=== PATIENT | female | born 1995 | race Caucasian/White ===

== ENCOUNTER 2019-04-18 15:24 | Emergency (ER) | payer OTHER ==
[~2019-04-18] VITALS: Ht 162.6 cm; Wt 63.5 kg
[2019-04-18 15:25] VITALS: BP_SYST 129
[2019-04-18] MEDS ORDERED: NACL 0.9% 1,000 ML IV ONE (15:45)
[2019-04-18 16:18] LABS: CALCIUM 9.1 mg/dL (8.4-11.0); CREATININE 0.84 mg/dL (0.55-1.30); POTASSIUM 3.4 mmol/L (3.5-5.1)
[2019-04-18 16:22] LABS: ALBUMIN 3.9 g/dL (3.4-4.8); TOTAL BILIRUBIN 0.4 mg/dL (0.0-1.0)
== END 2019-04-18 17:37 | disposition home or self-care (01) ==
LOC: SED 15:24 → EDBD 15:24 → SED 17:37
DX: T67.5XXA Heat exhaustion, unspecified, initial encounter (principal); R06.4 Hyperventilation; X32.XXXA Exposure to sunlight, initial encounter; Y93.79 Activity, other specified sports and athletics; Y92.89 Other specified places as the place of occurrence of the external cause; Y99.8 Other external cause status
CPT/HCPCS: 36415; 80053; 81025; 82550; 93005; 96360; 99284; J7030